=== PATIENT | female | born 2000 | race Caucasian/White ===

== ENCOUNTER 2023-05-01 16:37 | Inpatient (IN) ==
[2023-05-01 17:59] LABS: ABS Basophils 0.1 10^3/uL (0.0-0.1); ABS Eosinophils 0.4 10^3/uL (0.0-0.5); ABS Lymphocytes 2.1 10^3/uL (1.0-4.8); ABS Monocytes 0.3 10^3/uL (0.0-0.9); ABS Neutrophils 5.3 10^3/uL (1.5-7.6); ABS Nucleated RBC 0.01 10^3/ul; Eosinophil % 4.9 %; Hematocrit 46.5 % (35-45); Hemoglobin 16.2 g/dL (11.5-14.3); Lymphocyte % 25.2 %; Mean Corpuscular Hgb Conc 34.8 g/dL (31-36); Mean Corpuscular Volume 89.3 fL (80-97); Mean Platelet Volume 8.9 fL (7.5-11.2); Nucleated Red Blood Cells % 0.2 /100 WBC (0.0-0.4); Platelet Count 327 10^3/uL (150-450); Red Blood Count 5.21 10^6/uL (3.63-4.92); Red Cell Distribution Width 13.4 % (12-17); White Blood Count 8.1 10^3/uL (3.8-11.8)
[2023-05-01 18:05] LABS: INR 0.9 (0.83-1.13)
[2023-05-01 18:16] LABS: ALT 24 U/L (7-52); Albumin 5.3 g/dL (3.2-5.2); Albumin/Globulin Ratio 1.5 (1-3); Alkaline Phosphatase 63 U/L (35-149); Blood Urea Nitrogen 11 mg/dL (6-24); CO2 Carbon Dioxide 26 mmol/L (22-32); Chloride 101 mmol/L (101-111); Creatinine, Serum 0.88 mg/dL (0.51-0.95); Globulin 3.5 g/dL (2-4); Glucose 145 mg/dL (70-100); Sodium 136 mmol/L (135-145); Total Protein 8.8 g/dL (6.4-8.9); eGFR CKD-EPI 94.6 (>60)
[2023-05-01 18:19] LABS: Anion Gap 9 mmol/L (2-16)
[2023-05-02] MEDS ORDERED: Lactated Ringers 1000 ml BAG 1,000 ML IV ONE (03:34)
[2023-05-02 04:00] LABS: Body Fluid Source Cerebral Spinal
[2023-05-02 04:19] LABS: CSF Glucose 61 mg/dL (40-70)
[2023-05-02 04:23] LABS: Body Fluid Appearance Clear; Body Fluid Color Colorless; CSF Tube # 4
[2023-05-02 04:53] LABS: Body Fluid Total Cells Counted 3
[2023-05-02 04:56] LABS: Body Fluid WBC 3 /mcL
[2023-05-02 06:55] LABS: Albumin 4.7 g/dL (3.2-5.2); Albumin/Globulin Ratio 1.7 (1-3); Calcium 9.4 mg/dL (8.6-10.3); Creatinine, Serum 0.88 mg/dL (0.51-0.95); Globulin 2.8 g/dL (2-4); Magnesium 1.9 mg/dL (1.9-2.7); Potassium 3.3 mmol/L (3.5-5.0); Total Bilirubin 0.5 mg/dL (0.2-1.0); Total Protein 7.5 g/dL (6.4-8.9); eGFR CKD-EPI 94.6 (>60)
[2023-05-02 07:04] LABS: ABS Eosinophils 0.2 10^3/uL (0.0-0.5); ABS Lymphocytes 1.4 10^3/uL (1.0-4.8); ABS Monocytes 0.4 10^3/uL (0.0-0.9); ABS Neutrophils 12.4 10^3/uL (1.5-7.6); ABS Nucleated RBC 0.01 10^3/ul; Eosinophil % 1.1 %; Hematocrit 44.3 % (35-45); Hemoglobin 15.1 g/dL (11.5-14.3); Lymphocyte % 9.6 %; Mean Corpuscular Hemoglobin 30.3 pg (27-33); Mean Corpuscular Hgb Conc 34.1 g/dL (31-36); Mean Corpuscular Volume 88.8 fL (80-97); Mean Platelet Volume 9.3 fL (7.5-11.2); Nucleated Red Blood Cells % 0.1 /100 WBC (0.0-0.4); Platelet Count 313 10^3/uL (150-450); Red Blood Count 4.99 10^6/uL (3.63-4.92); Red Cell Distribution Width 13.2 % (12-17); White Blood Count 14.3 10^3/uL (3.8-11.8)
[2023-05-02 08:41] LABS: HDL Cholesterol 40.4 mg/dL
[2023-05-02] MEDS ORDERED: Potassium EFFERVES 25 meq TAB PO ONE (08:48)
[2023-05-02 14:12] VITALS: BP 124/68
== END 2023-05-02 17:35 | disposition home or self-care (01) | DRG 58 ==
LOC: ED 16:37 → EDHOLD 05-02 04:41 → SUATTDRO 05-02 04:41 → MEDTELE 05-02 07:53
PROVIDERS: ADMIT Hospitalist; ATTEND Internal Medicine